=== PATIENT | male | born 1980 | race Caucasian/White ===

== ENCOUNTER 2023-12-15 06:09 | Day surgery (SDC) | payer OTHER, SELFPAY ==
[2023-12-15] VITALS (9 sets, daily range): BP systolic 124–156; BP diastolic 76–92; BMI 33.7
[2023-12-15] MEDS: TYLENOL 1000 MG PO (10:06)
[2023-12-15] MEDS: NORMOSOL-R 1000 IV (10:15)
== END 2023-12-15 16:10 | disposition home or self-care (01) ==
LOC: SDS 06:09
PROVIDERS: ATTENDING PHYSICIAN Otolaryngology
DX: J34.2 Deviated nasal septum (principal); J34.3 Hypertrophy of nasal turbinates; R06.83 Snoring
CPT/HCPCS: 30520; 30140